=== PATIENT | male | born 1995 | race Two or more races ===

== ENCOUNTER 2017-12-02 09:55 | Emergency (ER) | payer OTHER ==
--- NOTE | 2017-12-02 10:17 | EDPHY ---
General Time Seen by Provider: 12/02/17 10:11 Narrative: CHIEF COMPLAINT: Fall, back pain HISTORY OF PRESENT ILLNESS: Patient presents by private vehicle with complaints of fall and back pain. He was working on a scaffold, approximately 3 ft high from the ground. He says that as he was lifting she rock overhead, the scaffolding gave way. He fell to the ground, striking his back on the crossbar and then on concrete. He says he thinks he struck his head on the wall while on the ground. Denies loss of conscious but does report "I almost blacked out when it happened."No nausea vomiting. No visual disturbance. No neck pain or stiffness. He has significant pain over the lumbar and thoracic spine, mostly left of midline with some midline as well. He has some pain over the left posterior pelvis. He has been able to ambulate. 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 He has had no incontinence of bowel or bladder. No numbness or weakness of lower extremities but does report some tingling in the left lateral thigh. No other associated complaints or modifying factors. REVIEW OF SYSTEMS: Ten systems reviewed and are negative unless otherwise noted in the HPI PAST MEDICAL HISTORY: None PAST SURGICAL HISTORY: None SOCIAL HISTORY: Nonsmoker. Lives independently. 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 Atraumatic. Pupils are equal round reactive. EOMs are symmetric and painless. Airway widely patent. No drainage from the EACs. Neck: Trachea is midline. Supple. No midline tenderness or crepitus. There is soft tissue tenderness of the trapezius bilaterally. No step-off or deformity. Cardiovascular: Regular rhythm. No murmur. Pulses normal throughout. Brisk cap refill Respiratory: Lungs are clear in all gonzales. No retractions or distress Abdomen: Soft and nontender. No tympany rigidity. No guarding. No palpable mass. Bowel sounds appreciated in all 4 quadrants. No CVA tenderness Neurological: GCS 15. A&O, light sensory symmetric in the upper lower extremities. Strength is symmetric in the wrist, elbows, knees, ankles and great toes. Patellar reflexes are symmetric at 2+. Skin: Warm and dry, no rash. No petechiae or purpura. No puncture laceration Extremities: Nontender, no pedal edema. Symmetric range of motion of the upper lower extremities. Psychiatric: Mood and affect normal DIFFERENTIAL DIAGNOSES: Including but not limited to thoracic fracture, thoracic sprain, thoracic contusion, lumbar fracture, lumbar strain, lumbar contusion, rib fracture, pelvic fracture, hematoma, renal injury, splenic injury, hepatic injury MDM: 10:15 a.m. Fall from approximately 3 ft height while on scaffold. He has pain in the thoracic, lumbar back and also in the is low left posterior upper pelvis. No abdominal pain and abdominal exam is benign. Vital signs within normal limits. He is ambulatory. No incontinence of bowel or bladder. Sensory is symmetric with reported paresthesia of the left thigh. He is awake and alert. No acute distress. I have ordered x-rays of all areas of concern, oral pain medication. 10:50 a.m. X-rays as read by me, without radiologist, reveal no obvious fractures. Do not appreciate any pneumothorax or rib fractures on the chest x-ray. 11:10 a.m. X-rays have been read as negative by radiologist. Patient has ambulated. He does have pain but he is no no acute distress. He has a steady gait. We discussed discharge home with symptomatic care, short course of Flexeril. He will need to follow up with his worker[facility] compensation [facility] for definitive care. We discussed ED precautions. Tenderness, tingling weakness incontinence. He is comfortable this plan and discharged home stable condition with his father. SUPERVISION: This patient was independently evaluated without direct involvement of or examination by the attending physician. - Diagnostics Imaging Results: Imaging Impressions Chest X-Ray 12/02/17 10:17 Impression: 1. Normal chest x-ray study Lumbar Spine X-Ray 12/02/17 10:17 Impression: Normal limited lumbar spine series. Thoracic Spine X-Ray 12/02/17 10:17 Impression: Normal thoracic spine series. Pelvis X-Ray 12/02/17 10:18 Impression: 1. Normal upright AP view pelvis - History Smoking Status: Never smoked - Objective Vital Signs: Initial Vital Signs Temperature (C) 98.4 F 12/02/17 10:01 Heart Rate 59 L 12/02/17 10:01 Respiratory Rate 16 12/02/17 10:01 Blood Pressure 119/63 12/02/17 10:01 O2 Sat (%) 95 12/02/17 10:01 O2 Delivery Mode Room Air Allergies/Adverse Reactions: No Known Allergies Allergy (Unverified 12/02/17 10:01) Home Medications: Medication Instructions Recorded Cyclobenzaprine [Flexeril 10 MG 10 mg PO TID PRN #15 tab 12/02/17 (*)] Medications Given: Discontinued Medications Oxycodone/Acetaminophen (Percocet 5/325) 2 tab PO EDNOW ONE Stop: 12/02/17 10:19 Last Admin: 12/02/17 10:50 Dose: 2 tab Departure - Departure Disposition: Home, Routine, Self-Care Clinical Impression: Fall Qualifiers: Encounter type: initial encounter Qualified Code(s): W19.XXXA - Unspecified fall, initial encounter Contusion of thoracic wall Qualifiers: Encounter type: initial encounter Contusion of thoracic wall detail: back wall of thorax Laterality: unspecified laterality Qualified Code(s): S20.229A - Contusion of unspecified back wall of thorax, initial encounter Lumbar contusion Qualifiers: Encounter type: initial encounter Qualified Code(s): S30.0XXA - Contusion of lower back and pelvis, initial encounter Condition: Good Instructions: Acute Low Back Pain (ED), Back Pain (ED) Additional Instructions: 1. Rest, ice and [id number] anti-inflammatories as needed 2. muscle relaxant as provided as needed. Do not work or drive on this medication 3. Follow up with worker's compensation [facility] for further care 4. ED precautions for any numbness, tingling, weakness, incontinence of bowel or bladder Referrals: Kasey Crook MD [Medical Doctor] - As per Instructions Stand Alone Forms: Work Comp Follow Up Prescriptions: Cyclobenzaprine [Flexeril 10 MG (*)] 10 mg PO TID PRN #15 tab PRN Reason: Spasms
[2017-12-02] MEDS ORDERED: OXYCODONE/APAP 5/325 TAB PO ONE (10:18)
[2017-12-02 11:29] VITALS: BP 110/52
== END 2017-12-02 11:41 | disposition home or self-care (01) ==
DX: S30.0XXA Contusion of lower back and pelvis, initial encounter (principal); S20.229A Contusion of unspecified back wall of thorax, initial encounter; W12.XXXA Fall on and from scaffolding, initial encounter; Y93.H3 Activity, building and construction; Y92.61 Building [any] under construction as the place of occurrence of the external cause; Y99.0 Civilian activity done for income or pay